=== PATIENT | female | born 1950 | race Caucasian/White ===

== ENCOUNTER 2016-11-07 06:41 | Inpatient (IN) | payer OTHER, MEDICAID ==
[~2016-11-07] VITALS: Ht 152.4 cm; Wt 125.6 kg
[2016-11-07] VITALS (41 sets, daily range): BP systolic 57–155; BP diastolic 38–95
[~2016-11-07 06:41] MED LIST: ATRO1TAB PO; Acetaminophen/Hydrocodone Bi PO; DOCU-67 PO; FURO-571 PO; GABA400C PO; GLIP5TAB4 PO; PHO667 PO; TEMA15CA11 PO
[2016-11-07] MEDS ORDERED: SODIUM CHLORIDE FLUSH 10 ML SYR IVF ONE (06:50)
[2016-11-07] MEDS ORDERED: ACET-2858 PO (07:07)
[2016-11-07] MEDS ORDERED: SEVE800T6 PO (07:07)
[2016-11-07] MEDS ORDERED: BEN50 PO (07:07)
[2016-11-07] MEDS ORDERED: PRO5 PO (07:07)
[2016-11-07] MEDS ORDERED: ESCI10TA PO (07:07)
[2016-11-07] MEDS ORDERED: CINA30TA PO (07:07)
[2016-11-07 07:24] LABS: BASOPHILS # (AUTO) 0.1 K/uL (0.00-0.22); BASOPHILS % (AUTO) 0.9 % (0.0-2.0); EOSINOPHILS # (AUTO) 0.5 K/uL (0-0.4); EOSINOPHILS % (AUTO) 3.8 % (0.0-4.0); HEMATOCRIT 40.2 % (36-48); HEMOGLOBIN 12.7 g/dL (12.0-16.0); LYMPHOCYTES # (AUTO) 2.6 K/uL (2.5-16.5); LYMPHOCYTES % (AUTO) 20.6 % (20.5-51.1); MEAN CORPUSCULAR HEMOGLOBIN 28 pg (27-31); MEAN CORPUSCULAR HGB CONC 31 g/dL (33-37); MEAN CORPUSCULAR VOLUME 90 fL (80-94); MONOCYTES # (AUTO) 0.4 K/uL (0.8-1.0); MONOCYTES % (AUTO) 3.5 % (1.7-9.3); NEUTROPHILS # (AUTO) 9.1 K/uL (1.8-7.7); NEUTROPHILS % (AUTO) 71.2 % (42.2-75.2); PLATELET COUNT (AUTO) 230 K/uL (140-450); RED BLOOD CELL COUNT(AUTO) 4.47 MIL/uL (4.20-5.40); WHITE BLOOD COUNT (AUTO) 12.7 K/uL (4.8-10.8)
[2016-11-07] MEDS ORDERED: ALBUTEROL 0.083% 2.5 MG/3 ML NEBU INH ONE (07:40)
[2016-11-07] MEDS ORDERED: ALBUTEROL SULFATE/IPRATROPIU 3 ML SOL IH ONE (07:40)
[2016-11-07 07:43] LABS: ALBUMIN 3.3 g/dL (3.4-5.0); ANION GAP 15.5 (8-16); CALCIUM 8.9 mg/dL (8.5-10.1); CARBON DIOXIDE 28.4 mmol/L (21-32); TOTAL BILIRUBIN 0.5 mg/dL (0.0-1.0); TOTAL PROTEIN, SERUM 7.4 g/dL (6.4-8.2)
[2016-11-07 07:48] LABS: CREATININE 6.4 mg/dL (0.6-1.3)
[2016-11-07 07:49] LABS: POTASSIUM 5.9 mmol/L (3.5-5.1)
[2016-11-07 07:52] LABS: PROTHROMBIN TIME 9.7 secs (10.8-13.4)
[2016-11-07 07:56] LABS: LACTIC ACID 1.6 mmol/L (0.4-2.0)
[2016-11-07] MEDS ORDERED: HYDROmorphone 1 MG/ML AMP IVP ONE (08:20)
[2016-11-07] MEDS ORDERED: SODIUM POLYSTYRENE 15 GM/60 ML UDBTL PO ONE (08:20)
[2016-11-07] MEDS ORDERED: NACL 0.9% 1,000 ML IV SCH (08:38)
[2016-11-07] MEDS ORDERED: ACETAMINOPHEN 325 MG TAB PO PRN (08:40)
[2016-11-07] MEDS ORDERED: ONDANSETRON 4 MG/2 ML VIAL IVP PRN (08:40)
[2016-11-07] MEDS ORDERED: PANTOPRAZOLE 40 MG INJ VIAL IVP SCH (10:00)
[2016-11-07 10:27] LABS: CALCIUM 8.7 mg/dL (8.5-10.1)
[2016-11-07 10:30] LABS: CREATININE 6.7 mg/dL (0.6-1.3)
[2016-11-07] MEDS ORDERED: methylPREDNISolone SS 125 MG/2 ML VIAL IVP SCH (11:00)
[2016-11-07 11:17] LABS: BLOOD GAS PH 7.179 (7.35-7.45)
[2016-11-07 11:18] LABS: BLOOD GAS PCO2 69.4 mmHg (20-50)
[2016-11-07 11:19] LABS: MAGNESIUM 2.5 mg/dL (1.8-2.4); PHOSPHORUS 7.5 mg/dL (2.5-4.9)
[2016-11-07 11:19] LABS: BLOOD GAS BASE EXCESS -4.4 mmol/L (-2.0-2.0); BLOOD GAS HCO3 25.3 mmol/L
[2016-11-07 11:20] LABS: BLOOD GAS O2 SAT% 96.1 % (92.0-98.5)
[2016-11-07] MEDS ORDERED: ETOMIDATE 20 MG/10 ML VIAL IVP ONE (11:38)
[2016-11-07] MEDS ORDERED: SUCCINYLCHOLINE CHLORIDE 200 MG/10 ML VIAL IVP ONE (11:45)
[2016-11-07] MEDS ORDERED: ATROPINE 1 MG/10 ML SYR IVP ONE (11:53)
[2016-11-07 11:55] LABS: FREE T4 (FREE THYROXINE) 0.84 ng/dL (0.76-1.46); THYROID STIMULATING HORMONE 7.59 uIU/mL (0.34-3.76)
[2016-11-07] MEDS ORDERED: DEXTROSE 50% 50 ML SYR IVP PRN (11:55)
[2016-11-07] MEDS: methylPREDNISolone SS 125 MG/2 ML VIAL IVP SCH ×2 (13:00→20:31)
[2016-11-07] MEDS: LORazepam 2 MG/ML VIAL IVP PRN (13:03)
[2016-11-07] MEDS: ALBUMIN HUMAN 25% 100 ML IV SCH ×2 (13:37→15:00)
[2016-11-07] MEDS: PROPOFOL 1000 MG/100 ML PREMIX 100 ML IV PRN ×2 (14:47→22:13)
[2016-11-07] MEDS ORDERED: VANCOMYCIN PER PHARMACY MC PRN (15:15)
[2016-11-07] MEDS ORDERED: VANCOMYCIN 1GM/DEXT 5% PREMIX 200 ML IV SCH (16:00)
[2016-11-07] MEDS ORDERED: VANCOMYCIN 1,000 MG in DEXTROSE 5% 250 ML IV SCH (16:00)
[2016-11-07] MEDS ORDERED: KETOROLAC 30 MG/ML VIAL IVP SCH (16:20)
[2016-11-07] MEDS ORDERED: HYDROmorphone 1 MG/ML AMP IVP PRN (16:35)
[2016-11-07] MEDS: SEVELAMER CARBONATE 800 MG TAB PO SCH (17:00)
[2016-11-07 17:07] LABS: BLOOD GAS BASE EXCESS -3.4 mmol/L (-2.0-2.0)
[2016-11-07 17:09] LABS: BLOOD GAS O2 SAT% 97.5 % (92.0-98.5)
[2016-11-07] MEDS ORDERED: ASPIRIN 81 MG TAB.CHEW PO SCH (17:52)
[2016-11-07] MEDS: FUROSEMIDE 100 MG/10 ML VIAL IVP SCH (18:23)
[2016-11-07] MEDS: BLOOD GLUCOSE MONITORING 1 DEV DEV FS SCH ×2 (18:30→21:21)
[2016-11-07] MEDS: INSULIN LISPRO SLIDING SCALE 100 UNITS/ML VIAL SUBQ PRN ×2 (18:56→21:24)
[2016-11-07 19:12] LABS: ANION GAP 16.6 (8-16); CALCIUM 9.3 mg/dL (8.5-10.1); CARBON DIOXIDE 26.3 mmol/L (21-32); MAGNESIUM 2.1 mg/dL (1.8-2.4); PHOSPHORUS 5.2 mg/dL (2.5-4.9); POTASSIUM 4.9 mmol/L (3.5-5.1)
[2016-11-07 19:13] LABS: CREATININE 4.7 mg/dL (0.6-1.3)
[2016-11-07] MEDS: ALBUTEROL SULFATE/IPRATROPIU 3 ML SOL IH SCH (20:26)
[2016-11-07] MEDS: DOCUSATE 100 MG/10 ML UDC PO SCH (20:30)
[2016-11-07] MEDS: CALCIUM ACETATE 667 MG TAB PO SCH (20:31)
[2016-11-07] MEDS: ATORVASTATIN 20 MG TAB PO SCH (20:32)
[2016-11-07] MEDS: METOPROLOL 25 MG TAB PO SCH (20:33)
[2016-11-07] MEDS: PIPER/TAZO 2.25GM/D5W PREMIX 50 ML IV SCH (20:34)
[2016-11-07] MEDS ORDERED: DOCUSATE SODIUM 100 MG GELCAP PO SCH (21:00)
[2016-11-07] MEDS ORDERED: NACL 0.9% 250 ML IV SCH (21:00)
[2016-11-08] VITALS (45 sets, daily range): BP systolic 97–160; BP diastolic 51–93
[2016-11-08] MEDS: ALBUTEROL SULFATE/IPRATROPIU 3 ML SOL IH SCH ×4 (01:03→19:51)
[2016-11-08 04:48] LABS: HEMATOCRIT 38.9 % (36-48); HEMOGLOBIN 12.2 g/dL (12.0-16.0); MEAN CORPUSCULAR HEMOGLOBIN 28 pg (27-31); MEAN CORPUSCULAR HGB CONC 31 g/dL (33-37); MEAN CORPUSCULAR VOLUME 90 fL (80-94); PLATELET COUNT (AUTO) 211 K/uL (140-450); RED BLOOD CELL COUNT(AUTO) 4.33 MIL/uL (4.20-5.40); RED CELL DISTRIBUTION WIDTH 15.9 % (11.6-13.7); WHITE BLOOD COUNT (AUTO) 12.8 K/uL (4.8-10.8)
[2016-11-08] MEDS: methylPREDNISolone SS 125 MG/2 ML VIAL IVP SCH ×2 (04:59→13:40)
[2016-11-08] MEDS: PROPOFOL 1000 MG/100 ML PREMIX 100 ML IV PRN (05:21)
[2016-11-08 06:01] LABS: ANION GAP 15.8 (8-16); CALCIUM 9.6 mg/dL (8.5-10.1); CARBON DIOXIDE 25.3 mmol/L (21-32); POTASSIUM 5.1 mmol/L (3.5-5.1)
[2016-11-08 06:02] LABS: PHOSPHORUS 5.4 mg/dL (2.5-4.9)
[2016-11-08 06:12] LABS: CREATININE 4.9 mg/dL (0.6-1.3)
[2016-11-08] MEDS: BLOOD GLUCOSE MONITORING 1 DEV DEV FS SCH ×4 (06:46→20:35)
[2016-11-08] MEDS: INSULIN LISPRO SLIDING SCALE 100 UNITS/ML VIAL SUBQ PRN ×4 (06:51→20:34)
[2016-11-08 07:18] LABS: BAND % (MANUAL) 4 % (0-8); LYMPHOCYTES % (MANUAL) 5 % (20-46); MONOCYTES % (MANUAL) 1 % (5-12); NEUTROPHILS % (MANUAL) 84 (43-65)
[2016-11-08] MEDS: METOPROLOL 25 MG TAB PO SCH ×2 (09:00→20:21)
[2016-11-08] MEDS: SEVELAMER CARBONATE 800 MG TAB PO SCH ×3 (09:00→17:16)
[2016-11-08] MEDS: ASPIRIN 81 MG TAB.CHEW PO SCH (09:00)
[2016-11-08] MEDS: DOCUSATE 100 MG/10 ML UDC PO SCH ×2 (09:00→20:21)
[2016-11-08] MEDS ORDERED: TEMAZEPAM 15 MG CAP PO SCH (09:00)
[2016-11-08] MEDS ORDERED: LISINOPRIL 5 MG TAB PO SCH (09:00)
[2016-11-08 09:51] LABS: BLOOD GAS BASE EXCESS -0.9 mmol/L (-2.0-2.0); BLOOD GAS HCO3 23.3 mmol/L; BLOOD GAS O2 SAT% 92.6 % (92.0-98.5); BLOOD GAS PCO2 37.1 mmHg (20-50); BLOOD GAS PH 7.416 (7.35-7.45); BLOOD GAS PO2 67.9 mmHg
[2016-11-08] MEDS: CINACALCET 30 MG TAB PO SCH ×2 (11:48→12:10)
[2016-11-08] MEDS: CALCIUM ACETATE 667 MG TAB PO SCH ×3 (11:48→17:17)
[2016-11-08] MEDS: ESCITALOPRAM 20 MG TAB PO SCH ×2 (11:49→12:10)
[2016-11-08] MEDS: PANTOPRAZOLE 40 MG INJ VIAL IVP SCH (11:57)
[2016-11-08] MEDS: PIPER/TAZO 2.25GM/D5W PREMIX 50 ML IV SCH ×2 (11:58→20:21)
[2016-11-08] MEDS: FUROSEMIDE 100 MG/10 ML VIAL IVP SCH ×2 (12:00→17:23)
[2016-11-08] MEDS: MIDODRINE 5 MG TAB PO SCH (12:16)
[2016-11-08] MEDS: ATORVASTATIN 20 MG TAB PO SCH (20:21)
[2016-11-08] MEDS: TEMAZEPAM 15 MG CAP PO SCH (21:07)
[2016-11-09] VITALS (12 sets, daily range): BP systolic 88–146; BP diastolic 42–84
[2016-11-09] MEDS: HYDROcodone/APAP 10/325 MG 1 TAB TAB PO PRN ×3 (00:58→21:33)
[2016-11-09] MEDS: ALBUTEROL SULFATE/IPRATROPIU 3 ML SOL IH SCH ×4 (01:34→19:46)
[2016-11-09] MEDS: methylPREDNISolone SS 40 MG/ML VIAL IVP SCH ×3 (04:55→20:55)
[2016-11-09 05:50] LABS: HEMOGLOBIN 11.3 g/dL (12.0-16.0); MEAN CORPUSCULAR HEMOGLOBIN 28 pg (27-31); MEAN CORPUSCULAR HGB CONC 31 g/dL (33-37); MEAN CORPUSCULAR VOLUME 90 fL (80-94); PLATELET COUNT (AUTO) 204 K/uL (140-450); RED BLOOD CELL COUNT(AUTO) 4.01 MIL/uL (4.20-5.40); RED CELL DISTRIBUTION WIDTH 15.8 % (11.6-13.7); WHITE BLOOD COUNT (AUTO) 14.2 K/uL (4.8-10.8)
[2016-11-09 06:09] LABS: BAND % (MANUAL) 3 % (0-8); LYMPHOCYTES % (MANUAL) 2 % (20-46); MONOCYTES % (MANUAL) 5 % (5-12); NEUTROPHILS % (MANUAL) 90 (43-65)
[2016-11-09 06:14] LABS: ANION GAP 15.1 (8-16); CALCIUM 9.3 mg/dL (8.5-10.1); CARBON DIOXIDE 27.3 mmol/L (21-32); POTASSIUM 4.4 mmol/L (3.5-5.1)
[2016-11-09 06:17] LABS: PHOSPHORUS 6.9 mg/dL (2.5-4.9)
[2016-11-09 06:25] LABS: CREATININE 5.9 mg/dL (0.6-1.3)
[2016-11-09] MEDS: INSULIN LISPRO SLIDING SCALE 100 UNITS/ML VIAL SUBQ PRN ×3 (06:26→21:31)
[2016-11-09] MEDS: BLOOD GLUCOSE MONITORING 1 DEV DEV FS SCH ×5 (06:27→21:28)
[2016-11-09] MEDS: MIDODRINE 5 MG TAB PO SCH (08:36)
[2016-11-09] MEDS: CINACALCET 30 MG TAB PO SCH (08:36)
[2016-11-09] MEDS: PIPER/TAZO 2.25GM/D5W PREMIX 50 ML IV SCH ×2 (08:36→20:54)
[2016-11-09] MEDS: ASPIRIN 81 MG TAB.CHEW PO SCH (08:37)
[2016-11-09] MEDS: ESCITALOPRAM 20 MG TAB PO SCH (08:37)
[2016-11-09] MEDS: DOCUSATE 100 MG/10 ML UDC PO SCH ×3 (08:37→21:00)
[2016-11-09] MEDS: PANTOPRAZOLE 40 MG INJ VIAL IVP SCH (08:38)
[2016-11-09] MEDS: SEVELAMER CARBONATE 800 MG TAB PO SCH ×3 (08:38→16:44)
[2016-11-09] MEDS: CALCIUM ACETATE 667 MG TAB PO SCH ×3 (08:42→16:44)
[2016-11-09] MEDS: METOPROLOL 25 MG TAB PO SCH ×2 (09:00→21:00)
[2016-11-09] MEDS ORDERED: VANCOMYCIN 1GM/DEXT 5% PREMIX 200 ML IV SCH (13:00)
[2016-11-09] MEDS: ATORVASTATIN 20 MG TAB PO SCH (20:55)
[2016-11-09] MEDS: TEMAZEPAM 15 MG CAP PO SCH (20:56)
[2016-11-09] MEDS: LORazepam 2 MG/ML VIAL IVP PRN (23:13)
[2016-11-10] MEDS: ALBUTEROL SULFATE/IPRATROPIU 3 ML SOL IH SCH ×3 (01:41→13:55)
[2016-11-10 04:15] VITALS: BP 122/58
[2016-11-10] MEDS: BLOOD GLUCOSE MONITORING 1 DEV DEV FS SCH ×3 (06:04→15:48)
[2016-11-10] MEDS: INSULIN LISPRO SLIDING SCALE 100 UNITS/ML VIAL SUBQ PRN ×3 (06:07→16:05)
[2016-11-10 06:18] LABS: BASOPHILS % (AUTO) 0.3 % (0.0-2.0); EOSINOPHILS # (AUTO) 0.1 K/uL (0-0.4); HEMATOCRIT 36.8 % (36-48); HEMOGLOBIN 11.4 g/dL (12.0-16.0); LYMPHOCYTES # (AUTO) 0.3 K/uL (2.5-16.5); LYMPHOCYTES % (AUTO) 3.5 % (20.5-51.1); MEAN CORPUSCULAR HEMOGLOBIN 28 pg (27-31); MEAN CORPUSCULAR HGB CONC 31 g/dL (33-37); MEAN CORPUSCULAR VOLUME 90 fL (80-94); MONOCYTES # (AUTO) 0.3 K/uL (0.8-1.0); MONOCYTES % (AUTO) 3.3 % (1.7-9.3); NEUTROPHILS # (AUTO) 9.3 K/uL (1.8-7.7); NEUTROPHILS % (AUTO) 91.9 % (42.2-75.2); PLATELET COUNT (AUTO) 191 K/uL (140-450); RED BLOOD CELL COUNT(AUTO) 4.07 MIL/uL (4.20-5.40); RED CELL DISTRIBUTION WIDTH 16.2 % (11.6-13.7)
[2016-11-10 06:22] LABS: ANION GAP 12.7 (8-16); CALCIUM 8.6 mg/dL (8.5-10.1); CARBON DIOXIDE 30.1 mmol/L (21-32); POTASSIUM 4.8 mmol/L (3.5-5.1)
[2016-11-10 06:26] LABS: MAGNESIUM 1.8 mg/dL (1.8-2.4); PHOSPHORUS 5.6 mg/dL (2.5-4.9)
[2016-11-10 06:40] LABS: CREATININE 4.8 mg/dL (0.6-1.3)
[2016-11-10 08:00] VITALS: BP 129/59
[2016-11-10] MEDS: CALCIUM ACETATE 667 MG TAB PO SCH ×3 (08:37→17:00)
[2016-11-10] MEDS: SEVELAMER CARBONATE 800 MG TAB PO SCH ×3 (08:37→17:00)
[2016-11-10] MEDS: MIDODRINE 5 MG TAB PO SCH (08:38)
[2016-11-10] MEDS: ESCITALOPRAM 20 MG TAB PO SCH (08:38)
[2016-11-10] MEDS: ASPIRIN 81 MG TAB.CHEW PO SCH (08:38)
[2016-11-10] MEDS: PANTOPRAZOLE 40 MG INJ VIAL IVP SCH (08:39)
[2016-11-10] MEDS: METOPROLOL 25 MG TAB PO SCH (08:39)
[2016-11-10] MEDS: DOCUSATE 100 MG/10 ML UDC PO SCH (08:40)
[2016-11-10] MEDS: PIPER/TAZO 2.25GM/D5W PREMIX 50 ML IV SCH (08:40)
[2016-11-10] MEDS: CINACALCET 30 MG TAB PO SCH (10:09)
[2016-11-10] MEDS: LORazepam 2 MG/ML VIAL IVP PRN ×3 (10:16→15:42)
[2016-11-10 12:00] VITALS: BP 130/66
[2016-11-10] MEDS ORDERED: LACT1.4C PO (12:43)
[2016-11-10] MEDS ORDERED: LEVO750T2 PO (12:43)
[2016-11-10] MEDS ORDERED: CLIN300C2 PO (12:43)
[2016-11-10 16:00] VITALS: BP 107/51
[2016-11-12 06:31] LABS: HEPATITIS A ANTIBODY IGM Negative (Negative); HEPATITIS A ANTIBODY TOTAL Negative (Negative); HEPATITIS B CORE AB TOTAL Negative (Negative); HEPATITIS B CORE, IGM Negative (Negative); HEPATITIS B SURFACE AB Non Reactive (.); HEPATITIS B SURFACE ANTIGEN Negative (Negative); HEPATITIS C VIRUS ANTIBODY <0.1 s/co ratio (0.0-0.9)
== END 2016-11-10 17:25 | disposition home or self-care (01) | DRG 871 ==
LOC: MED 06:41 → MTU 08:38 → MIC 11:53 → MTU 11-09 17:30
PROVIDERS: ADMIT Family Medicine; ATTEND Family Medicine
PROC: 5A1935Z Respiratory Ventilation, Less than 24 Consecutive Hours (ICD-10-PCS; principal; 2016-11-07)
PROC: 0BH17EZ Insertion of Endotracheal Airway into Trachea, Via Natural or Artificial Opening (ICD-10-PCS; 2016-11-07)
PROC: 02HV33Z Insertion of Infusion Device into Superior Vena Cava, Percutaneous Approach (ICD-10-PCS; 2016-11-07)
PROC: B548ZZA Ultrasonography of Superior Vena Cava, Guidance (ICD-10-PCS; 2016-11-07)
PROC: 5A1D60Z (ICD-10-PCS; 2016-11-07)
DX: A41.9 Sepsis, unspecified organism (principal); J69.0 Pneumonitis due to inhalation of food and vomit; J96.21 Acute and chronic respiratory failure with hypoxia; J96.22 Acute and chronic respiratory failure with hypercapnia; N17.0 Acute kidney failure with tubular necrosis; E43 Unspecified severe protein-calorie malnutrition; N18.6 End stage renal disease; R65.21 Severe sepsis with septic shock; J44.1 Chronic obstructive pulmonary disease with (acute) exacerbation; I42.0 Dilated cardiomyopathy; D68.69 Other thrombophilia; Z68.43 Body mass index [BMI] 50.0-59.9, adult; I13.2 Hypertensive heart and chronic kidney disease with heart failure and with stage 5 chronic kidney disease, or end stage renal disease; I42.2 Other hypertrophic cardiomyopathy; E11.65 Type 2 diabetes mellitus with hyperglycemia; E87.5 Hyperkalemia; E66.01 Morbid (severe) obesity due to excess calories; F03.90 Unspecified dementia, unspecified severity, without behavioral disturbance, psychotic disturbance, mood disturbance, and anxiety; E11.21 Type 2 diabetes mellitus with diabetic nephropathy; E11.22 Type 2 diabetes mellitus with diabetic chronic kidney disease; E11.319 Type 2 diabetes mellitus with unspecified diabetic retinopathy without macular edema; Z53.29 Procedure and treatment not carried out because of patient's decision for other reasons; E83.39 Other disorders of phosphorus metabolism; F41.9 Anxiety disorder, unspecified; G47.30 Sleep apnea, unspecified; I50.9 Heart failure, unspecified; Z87.81 Personal history of (healed) traumatic fracture; Z91.11 Patient's noncompliance with dietary regimen; Z91.19 Patient's noncompliance with other medical treatment and regimen; Z88.6 Allergy status to analgesic agent; Z79.899 Other long term (current) drug therapy; Z86.73 Personal history of transient ischemic attack (TIA), and cerebral infarction without residual deficits; Z71.3 Dietary counseling and surveillance; Z99.2 Dependence on renal dialysis; Z99.3 Dependence on wheelchair; Z28.21 Immunization not carried out because of patient refusal
CPT/HCPCS: 31500; 36415; 36600; 71010; 80048; 80053; 80202; 82140; 82150; 82803; 82948; 83036; 83605; 83690; 83735; 83880; 84100; 84439; 84443; 84484; 85025; 85610; 85730; 86704; 86706; 86708; 86709; 86803; 87040; 87070; 87081; 87205; 87340; 93005; 93925; 93970; 94003; 94640; 96374; 99285; C9113; J0461; J1170; J1642; J1644; J1815; J1940; J2060; J2543; J2704; J2920; J2930; J3370; J7030; J7060; J7613; J7620; P9046; Q0092; Q0163